=== PATIENT | male | born 1990 | race Caucasian/White ===

== ENCOUNTER 2022-04-20 13:43 | Emergency (ER) | payer SELFPAY | END 2022-04-20 14:38 | disposition home or self-care (01) | LOC: MW.ED 13:43 | DX: G51.0 Bell's palsy (principal); Z79.899 Other long term (current) drug therapy | CPT/HCPCS: 99283; 99284 ==

== ENCOUNTER 2022-08-19 16:09 | Emergency (ER) | payer BC ==
[2022-08-19] MEDS ORDERED: Ondansetron 4 MG Tab.DIS PO ONE (16:54)
[2022-08-19] MEDS ORDERED: Ketorolac 60 MG/2 ML SDV IM ONE (16:54)
[2022-08-19 17:26] LABS: CORONAVIRUS COVID-19 NAA POSITIVE (NEGATIVE); INFLUENZA A NAA NEGATIVE (NEGATIVE); INFLUENZA B NAA NEGATIVE (NEGATIVE); RESPIRATORY SYNCYTIAL VIR NAA NEGATIVE (NEGATIVE)
== END 2022-08-19 18:14 | disposition home or self-care (01) ==
LOC: MW.ED 16:09
DX: U07.1 COVID-19 (principal); Z79.899 Other long term (current) drug therapy
CPT/HCPCS: 0241U; 87651; 96372; 99284; A9270; J1885